=== PATIENT | male | born 1985 | race Caucasian/White ===

== ENCOUNTER → 2017-02-17 | Outpatient (REF) | payer OTHER | LOC: M LAB REF 09:40 | PROVIDERS: ATTEND Physician Assistant | DX: J02.9 Acute pharyngitis, unspecified (principal) ==

== ENCOUNTER → 2020-03-17 | Outpatient (CLI) | payer OTHER ==
[~2020-03-17] MED LIST: OMEP40CA97 PO
== END ==
LOC: M LABSMTC 13:22
PROVIDERS: ATTEND Anesthesiology
DX: Z01.812 Encounter for preprocedural laboratory examination (principal); Z20.828 Contact with and (suspected) exposure to other viral communicable diseases

== ENCOUNTER 2020-03-22 11:28 | Day surgery (SDC) | payer OTHER ==
[~2020-03-22] VITALS: Ht 182.9 cm; Wt 112.2 kg
[~2020-03-22 11:28] MED LIST changes: +NS 1,000 ML IV ONE
[2020-03-22] MEDS ORDERED: propofoL 200 MG/20 ML VIAL As Ordered ONE ×2 (13:00→13:56)
[2020-03-22] MEDS ORDERED: fentaNYL 100 MCG/2 ML INJECTION (J3010) As Ordered ONE (13:00)
[2020-03-22] MEDS ORDERED: LIDOCAINE 2% 100MG/5ML SDV (FOR ANES.) As Ordered ONE (13:00)
--- NOTE | 2020-03-22 14:29 | ROOR ---
Patient Name: Jonh Celestin Procedure Date: 03/22/2020 1:30 PM Date of : 1985 Age: 35 Room: [facility] Gender: Male Note Status: Finalized Procedure: Upper GI endoscopy Indications: Dysphagia, Suspected gastro-esophageal reflux disease Providers: Sergio Flaherty MD Referring MD: CHILO Uribe Requesting Provider: Medicines: Monitored Anesthesia Care Complications: No immediate complications. Procedure: Pre-Anesthesia Assessment: - Prior to the procedure, a History and Physical was performed, and patient medications and allergies were reviewed. The patient is competent. The risks and benefits of the procedure and the sedation options and risks were discussed with the patient. All questions were answered and informed consent was obtained. Patient identification and proposed procedure were verified by the physician, the nurse and the anesthesiologist in the procedure room. Mental Status Examination: alert and oriented. Airway Examination: normal oropharyngeal airway and neck mobility. Respiratory Examination: clear to auscultation. CV Examination: normal. Prophylactic Antibiotics: The patient does not require prophylactic antibiotics. Prior Anticoagulants: The patient has taken no previous anticoagulant or antiplatelet agents. ASA Grade Assessment: II - A patient with mild systemic disease. After reviewing the risks and benefits, the patient was deemed in satisfactory condition to undergo the procedure. The anesthesia plan was to use monitored anesthesia care (MAC). Immediately prior to administration of medications, the patient was re-assessed for adequacy to receive sedatives. The heart rate, respiratory rate, oxygen saturations, blood pressure, adequacy of pulmonary ventilation, and response to care were monitored throughout the procedure. The physical status of the patient was re-assessed after the procedure. The Endoscope was introduced through the mouth, and advanced to the second part of duodenum. The upper GI endoscopy was accomplished without difficulty. The patient tolerated the procedure well. Findings: Mucosal changes including longitudinal furrows, white plaques, stenosis and vertical lines were found in the middle third of the esophagus and in the lower third of the esophagus. Biopsies were obtained from the proximal and distal esophagus with cold forceps for histology of suspected eosinophilic esophagitis. A TTS dilator was passed through the scope. Dilation with an 18-19-20 mm balloon dilator was performed to 20 mm. Verification of patient identification for the specimen was done by the physician and nurse using the patient's name, date and medical record number. Estimated blood loss was minimal. A small hiatal hernia was present. Scattered mild inflammation characterized by erythema and granularity was found in the gastric antrum. Biopsies were taken with a cold forceps for Helicobacter pylori testing. The duodenal bulb and second portion of the duodenum were normal. Impression: - Esophageal mucosal changes suspicious for eosinophilic esophagitis. Biopsied. Dilated. - Small hiatal hernia. - Gastritis. Biopsied. - Normal duodenal bulb and second portion of the duodenum. Recommendation: - Patient has a contact number available for emergencies. The signs and symptoms of potential delayed complications were discussed with the patient. Return to normal activities tomorrow. Written discharge instructions were provided to the patient. - High fiber diet. - Avoid the food allergens. Follow Six Food Elimination Diet ( Avoid -- milk, soy, eggs, wheat, peanuts/tree nuts, and seafood), until allergy testing is done. - Continue present medications. - Use Protonix (pantoprazole) 40 mg PO daily - to be taken ob/gyn 1/2 hour before breakfast for 3 months. - Await pathology results. - Repeat upper endoscopy in 3 months to check healing and to evaluate the response to therapy. - Telephone GI clinic for pathology results in 2 weeks. - Return to primary care physician. Procedure Code(s): --- Professional --- 72685, Esophagogastroduodenoscopy, flexible, transoral; with transendoscopic balloon dilation of esophagus (less than 30 mm diameter) 63057, 59, Esophagogastroduodenoscopy, flexible, transoral; with biopsy, single or multiple Diagnosis Code(s): --- Professional --- K22.8, Other specified diseases of esophagus K44.9, Diaphragmatic hernia without obstruction or gangrene K29.70, Gastritis, unspecified, without bleeding R13.10, Dysphagia, unspecified CPT copyright 2019 [employer]. All rights reserved. The codes documented in this report are preliminary and upon signal worker review may be revised to meet current compliance requirements. Sergio Flaherty MD Sergio Flaherty MD 03/22/2020 2:29:10 PM Electronically signed by Sergio Flaherty MD Number of Addenda: 0 Note Initiated On: 03/22/2020 1:30 PM Estimated Blood Loss: Estimated blood loss was minimal.
[2020-03-22 14:44] VITALS: BP 124/75
== END 2020-03-22 14:45 | disposition home or self-care (01) ==
LOC: M OPP 11:28
PROVIDERS: ATTEND Internal Medicine Gastroenterology
DX: K22.8 Other specified diseases of esophagus (principal); K44.9 Diaphragmatic hernia without obstruction or gangrene; K29.70 Gastritis, unspecified, without bleeding; R13.10 Dysphagia, unspecified; K21.9 Gastro-esophageal reflux disease without esophagitis; Z88.1 Allergy status to other antibiotic agents
CPT/HCPCS: 43239; 43249; 88305; 88342; J3010

== ENCOUNTER → 2020-07-27 | Outpatient (CLI) | payer OTHER ==
[~2020-07-27] MED LIST changes: -NS 1,000 ML IV ONE; +PANT40TA29
== END ==
LOC: M LABSMTC 10:18
PROVIDERS: ATTEND Anesthesiology
DX: Z20.828 Contact with and (suspected) exposure to other viral communicable diseases (principal); Z11.59 Encounter for screening for other viral diseases

== ENCOUNTER 2020-08-01 12:04 | Day surgery (SDC) | payer OTHER ==
[~2020-08-01] VITALS: Ht 182.9 cm; Wt 111.5 kg
[~2020-08-01 12:04] MED LIST changes: +NS 1,000 ML IV ONE
[2020-08-01] MEDS ORDERED: FLUT22IN INH (12:38)
[2020-08-01] MEDS ORDERED: fentaNYL 100 MCG/2 ML INJECTION (J3010) As Ordered ONE (12:53)
[2020-08-01] MEDS ORDERED: propofoL 200 MG/20 ML VIAL As Ordered ONE ×2 (12:53→13:48)
[2020-08-01] MEDS ORDERED: LIDOCAINE 2% 100MG/5ML SDV (FOR ANES.) As Ordered ONE (12:53)
--- NOTE | 2020-08-01 14:07 | ROOR ---
Patient Name: Jonh Celestin Procedure Date: 08/01/2020 1:36 PM Date of : 1985 Age: 35 Room: [facility] Gender: Male Note Status: Finalized Procedure: Upper GI endoscopy Indications: Follow-up of eosinophilic esophagitis Providers: Sergio Flaherty MD Referring MD: CHILO Uribe Requesting Provider: Medicines: Monitored Anesthesia Care Complications: No immediate complications. Procedure: Pre-Anesthesia Assessment: - Prior to the procedure, a History and Physical was performed, and patient medications and allergies were reviewed. The patient is competent. The risks and benefits of the procedure and the sedation options and risks were discussed with the patient. All questions were answered and informed consent was obtained. Patient identification and proposed procedure were verified by the physician, the nurse and the anesthesiologist in the procedure room. Mental Status Examination: alert and oriented. Respiratory Examination: clear to auscultation. CV Examination: normal. Prophylactic Antibiotics: The patient does not require prophylactic antibiotics. Prior Anticoagulants: The patient has taken no previous anticoagulant or antiplatelet agents. ASA Grade Assessment: II - A patient with mild systemic disease. After reviewing the risks and benefits, the patient was deemed in satisfactory condition to undergo the procedure. The anesthesia plan was to use monitored anesthesia care (MAC). Immediately prior to administration of medications, the patient was re-assessed for adequacy to receive sedatives. The heart rate, respiratory rate, oxygen saturations, blood pressure, adequacy of pulmonary ventilation, and response to care were monitored throughout the procedure. The physical status of the patient was re-assessed after the procedure. The Endoscope was introduced through the mouth, and advanced to the second part of duodenum. The upper GI endoscopy was accomplished without difficulty. The patient tolerated the procedure well. Findings: Mucosal changes including crepe paper esophagus and longitudinal markings were found in the middle third of the esophagus and in the lower third of the esophagus. Biopsies were obtained from the proximal and distal esophagus with cold forceps for histology of suspected eosinophilic esophagitis. Verification of patient identification for the specimen was done by the physician and nurse using the patient's name, date and medical record number. Estimated blood loss was minimal. The Z-line was regular and was found 41 cm from the incisors. Patchy moderate inflammation characterized by erythema, friability, granularity and linear erosions was found in the gastric antrum. Biopsies were taken with a cold forceps for histology. The duodenal bulb and second portion of the duodenum were normal. Impression: - Esophageal mucosal changes. Biopsied. - Z-line regular, 41 cm from the incisors. - Gastritis. Biopsied. - Normal duodenal bulb and second portion of the duodenum. Recommendation: - Patient has a contact number available for emergencies. The signs and symptoms of potential delayed complications were discussed with the patient. Return to normal activities tomorrow. Written discharge instructions were provided to the patient. - High fiber diet. - Avoid the food allergens. Follow Six Food Elimination Diet ( Avoid -- milk, soy, eggs, wheat, peanuts/tree nuts, and seafood), until allergy testing is done. - Continue present medications. - Await pathology results. - Telephone GI clinic for pathology results in 2 weeks. - Return to primary care physician. Procedure Code(s): --- Professional --- 24528, Esophagogastroduodenoscopy, flexible, transoral; with biopsy, single or multiple Diagnosis Code(s): --- Professional --- K22.8, Other specified diseases of esophagus K29.70, Gastritis, unspecified, without bleeding K20.0, Eosinophilic esophagitis CPT copyright 2019 [employer]. All rights reserved. The codes documented in this report are preliminary and upon hand painter review may be revised to meet current compliance requirements. Sergio Flaherty MD Sergio Flaherty MD 08/01/2020 2:06:49 PM Electronically signed by Sergio Flaherty MD Number of Addenda: 0 Note Initiated On: 08/01/2020 1:36 PM Estimated Blood Loss: Estimated blood loss was minimal.
[2020-08-01 14:15] VITALS: BP 124/68
== END 2020-08-01 14:32 | disposition home or self-care (01) ==
LOC: M OPP 12:04
PROVIDERS: ATTEND Internal Medicine Gastroenterology
DX: K22.8 Other specified diseases of esophagus (principal); K29.70 Gastritis, unspecified, without bleeding; K20.0 Eosinophilic esophagitis; K21.9 Gastro-esophageal reflux disease without esophagitis; Z88.1 Allergy status to other antibiotic agents
CPT/HCPCS: 43239; 88305; J3010

== ENCOUNTER 2022-11-13 12:32 | Day surgery (SDC) | payer OTHER ==
[~2022-11-13] VITALS: Ht 182.9 cm; Wt 105.1 kg
[~2022-11-13 12:32] MED LIST changes: +FLUT22IN INH; +OMEP40CA4 PO; +OMEP40CA5 PO; -OMEP40CA97 PO; +SERT50TA29 PO; +TRAZ-257 PO
[2022-11-13] MEDS ORDERED: LIDOCAINE 2% 100MG/5ML SDV (FOR ANES.) As Ordered ONE (14:07)
[2022-11-13] MEDS ORDERED: fentaNYL 100 MCG/2 ML INJECTION As Ordered ONE (14:07)
[2022-11-13] MEDS ORDERED: propofoL 200 MG/20 ML VIAL As Ordered ONE ×2 (14:07→14:29)
[2022-11-13 14:45] VITALS: BP 126/81; O2SAT 98
== END 2022-11-13 14:46 | disposition home or self-care (01) ==
LOC: M OPP 12:32
PROVIDERS: ATTEND Internal Medicine Gastroenterology
DX: K22.89 Other specified disease of esophagus (principal); K31.89 Other diseases of stomach and duodenum; K20.0 Eosinophilic esophagitis; Z79.899 Other long term (current) drug therapy
CPT/HCPCS: 43249; 88305; J3010

== ENCOUNTER 2024-07-03 13:24 | Day surgery (SDC) | payer OTHER ==
[~2024-07-03] VITALS: Ht 182.9 cm; Wt 103.4 kg
[~2024-07-03 13:24] MED LIST changes: +BUDE2SUS3 PO; +DICL100G10 TOP; -NS 1,000 ML IV ONE; +SEMA1.7P SC; +SERT25TA21 PO
[2024-07-03] MEDS ORDERED: LIDOCAINE 2% 100MG/5ML SDV (FOR ANES.) As Ordered ONE (14:35)
[2024-07-03] MEDS ORDERED: propofoL 200 MG/20 ML VIAL As Ordered ONE (14:35)
[2024-07-03] MEDS ORDERED: GLYCOPYRROLATE INJ 0.2 MG/ML 2 ML VIAL As Ordered ONE (14:36)
[2024-07-03 15:19] VITALS: TEMP 98.4
[2024-07-03 15:38] VITALS: BP 123/60; O2SAT 97
== END 2024-07-03 15:50 | disposition home or self-care (01) ==
LOC: M OPP 13:24
PROVIDERS: ATTEND Internal Medicine Gastroenterology
DX: K20.0 Eosinophilic esophagitis (principal); K22.2 Esophageal obstruction; K22.89 Other specified disease of esophagus; R13.10 Dysphagia, unspecified; Z88.1 Allergy status to other antibiotic agents; Z79.85 Long-term (current) use of injectable non-insulin antidiabetic drugs; Z79.899 Other long term (current) drug therapy
CPT/HCPCS: 43239; 43249; 88305; A4649; J1596